=== PATIENT | female | born 1945 | race Caucasian/White ===

== ENCOUNTER → 2016-08-19 | Outpatient (CLI) | payer MEDICARE, OTHER ==
[~2016-08-19] MED LIST: ALLEGRA ALLERG180 MG PO; CALCIUM600 MG PO; CARISOPRODOL350 MG PO; CELEXA40 MG PO; COQ-1030 MG PO; COZAAR50 MG PO; CYMBALTA60 MG PO; FISH OIL 1,0001 EACH PO; HALFPRIN81 MG PO; LOPRESSOR25 MG PO; LORAZEPAM0.5 MG PO; LOTRISONE CREAM45 GM TOP; OCUVITE EYE +1 EACH PO; PRILOSEC20 MG PO; SIMVASTATIN20 MG PO; SINGULAIR10 MG PO; SYNTHROID112 MCG PO; VITAMIN C1000 MG PO
== END | disposition short-term general hospital (02) ==
LOC: CLCARD 09:30
DX: R53.83 Other fatigue (principal); R06.02 Shortness of breath; I10 Essential (primary) hypertension; E03.9 Hypothyroidism, unspecified; F41.9 Anxiety disorder, unspecified; Z79.82 Long term (current) use of aspirin; Z79.899 Other long term (current) drug therapy

== ENCOUNTER 2016-11-05 20:14 | Emergency (ER) | payer OTHER, MEDICARE ==
[~2016-11-05] VITALS: Ht 157.5 cm; Wt 114.3 kg
[~2016-11-05 20:14] MED LIST changes: -ALLEGRA ALLERG180 MG PO; -CARISOPRODOL350 MG PO; -PRILOSEC20 MG PO; -SINGULAIR10 MG PO
[2016-11-05] MEDS ORDERED: SINGULAIR10 MG PO (20:30)
[2016-11-05] MEDS ORDERED: CARISOPRODOL350 MG PO (20:31)
[2016-11-05] MEDS ORDERED: PRILOSEC20 MG PO (20:32)
[2016-11-05] MEDS ORDERED: ALLEGRA ALLERG180 MG PO (20:34)
== END 2016-11-05 20:45 | disposition short-term general hospital (02) ==
LOC: ER 20:14
DX: S70.11XA Contusion of right thigh, initial encounter (principal); S80.211A Abrasion, right knee, initial encounter; I10 Essential (primary) hypertension; E78.5 Hyperlipidemia, unspecified; M19.90 Unspecified osteoarthritis, unspecified site; V89.2XXA Person injured in unspecified motor-vehicle accident, traffic, initial encounter

== ENCOUNTER → 2016-12-01 | Outpatient (CLI) | payer MEDICARE, OTHER ==
[~2016-12-01] MED LIST changes: +ALLEGRA ALLERG180 MG PO; +CARISOPRODOL350 MG PO; +PRILOSEC20 MG PO; +SINGULAIR10 MG PO
== END | disposition short-term general hospital (02) ==
LOC: CLNEUR 07:33 → CLPHYS 10:01 → CLNEUR 10:23
DX: G25.2 Other specified forms of tremor (principal); R26.89 Other abnormalities of gait and mobility